=== PATIENT | female | born 1950 | race Caucasian/White ===

== ENCOUNTER → 2017-06-14 | Outpatient (CLI) | payer OTHER | LOC: CIMAGING 10:46 | PROVIDERS: ATTEND Internal Medicine | DX: Z12.31 Encounter for screening mammogram for malignant neoplasm of breast (principal) | CPT/HCPCS: G0202 ==

== ENCOUNTER → 2017-07-05 | Outpatient (CLI) | payer OTHER | LOC: BRMIMAGING 08:36 | PROVIDERS: ATTEND Internal Medicine | DX: Z13.820 Encounter for screening for osteoporosis (principal); M81.0 Age-related osteoporosis without current pathological fracture; Z78.0 Asymptomatic menopausal state ==

== ENCOUNTER → 2018-08-01 | Outpatient (CLI) | payer OTHER | LOC: CIMAGING 09:06 | PROVIDERS: ATTEND Internal Medicine | DX: Z12.31 Encounter for screening mammogram for malignant neoplasm of breast (principal) ==